=== PATIENT | male | born 1985 | race Caucasian/White ===

== ENCOUNTER 2018-07-12 19:19 | Emergency (ER) | payer SELFPAY ==
--- NOTE | 2018-07-12 20:05 | ED ---
Substance Abuse/Use - HPI Summary HPI Summary: This patient is a 32 year old M brought in by ambulance to [facility] accompanied by Shirley HURD with a chief complaint of heroin overdose since 18:00. [place] who was taking him to be checked into a rehab facility. Patient notes that he relapsed 2 weeks ago and has been taking meth but today was the first time he has done heroin in a long time. registered private duty nurse administered narcan [employer] and note that the patient vomited. The patient rates the pain 0/10 in severity. Symptoms aggravated by recent stress. Patient notes that he was released from correction a few weeks ago and his father recently . Symptoms alleviated by nothing. Patient denies any notable symptoms. Hx bipolar disorder and substance abuse. Patient notes that he is currently on parole. - History Of Current Complaint Chief Complaint: EDOverdose Stated Complaint: OVERDOSE Time Seen by Provider: 07/12/18 19:33 Hx Obtained From: Patient Onset/Duration of Drug/ETOH Abuse: Hours Ingestion History: Type/Name Of Drug - Heroin, Approximate Time Of Ingestion - 18:00 Overdose Characteristics: IV Severity Initially: Moderate Severity Currently: Mild Aggravating Factor(s): Recent Stress - patient notes that he was released from correction a few weeks ago and his father recently Alleviating Factor(s): Medication - narcan Associated Signs And Symptoms: Vomiting - Allergies/Home Medications Home Medications: Home Medications NK [No Home Medications Reported] 07/12/18 [History Confirmed 07/12/18] PMH/Surg Hx/FS Hx/Imm Hx Psychiatric History: Reports: Hx Bipolar Disorder, Hx Substance Abuse Infectious Disease History: No Infectious Disease History: Denies: Traveled Outside the [place] in Last 30 Days - Family History Known Family History: Negative: Diabetes - Social History Occupation: Unemployed Hx Substance Use: Yes Substance Use Type: Reports: Heroin, Other - meth Review of Systems Negative: Fever Negative: Epistaxis Negative: Chest Pain Negative: Cough Positive: Vomiting All Other Systems Reviewed And Are Negative: Yes Physical Exam - Summary Physical Exam Summary: VITAL SIGNS: Reviewed. GENERAL: Patient is a well-developed and nourished MALE who is lying comfortable in the stretcher. Patient is not in any acute respiratory distress. HEAD AND FACE: Minor abrasion over the right face. No ecchymosis, hematomas or skull depressions. No sinus tenderness. EYES: PERRLA, EOMI x 2, No injected conjunctiva, no nystagmus. EARS: Hearing grossly intact. Ear canals and tympanic membranes are within normal limits. MOUTH: Oropharynx within normal limits. NECK: Supple, trachea is midline, no adenopathy, no JVD, no carotid bruit, no c- spine tenderness, neck with full ROM. CHEST: Symmetric, no tenderness at palpation LUNGS: Clear to auscultation bilaterally. No wheezing or crackles. CVS: Regular rate and rhythm, S1 and S2 present, no murmurs or gallops appreciated. ABDOMEN: Soft, non-tender. No signs of distention. No rebound no guarding, and no masses palpated. Bowel sounds are normal. EXTREMITIES: FROM in all major joints, no edema, no cyanosis or clubbing. NEURO: Alert and oriented x 3. No acute neurological deficits. Speech is normal and follows commands. SKIN: Dry and warm. Minor abrasion to right face. Superficial abrasions to right hand. Triage Information Reviewed: Yes Vital Signs On Initial Exam: Initial Vitals Temp Pulse Resp BP Pulse Ox 96.5 F 96 16 112/79 95 07/12/18 19:21 07/12/18 19:21 07/12/18 19:21 07/12/18 19:21 07/12/18 19:21 Vital Signs Reviewed: Yes Diagnostics - Vital Signs Vital Signs Temp Pulse Resp BP Pulse Ox 07/12/18 19:27 96 20 112/79 96 07/12/18 19:26 18 07/12/18 19:21 96.5 F 96 16 112/79 95 - Laboratory Lab Statement: Any lab studies that have been ordered have been reviewed, and results considered in the medical decision making process. Course/Dx - Course Course Of Treatment: This patient is a 32 year old M with hx substance abuse brought in by ambulance to [facility] accompanied by Shirley HURD with a chief complaint of heroin overdose since 18:00. [place] his friend who was taking him to be checked into a rehab facility. Patient notes that he relapsed 2 weeks ago and has been taking meth but today was the first time he has done heroin in a long time. Symptoms alleviated by nothing. Patient denies any notable symptoms. Patient is currently on parole. Patient notes he feels much better. Patient will be discharged into police custody. Patient is agreeable with this plan. - Diagnoses Provider Diagnoses: Heroin overdose, Substance abuse Discharge - Sign-Out/Discharge Documenting (check all that apply): Patient Departure - discharge home - Discharge Plan Condition: Stable Disposition: LAW ENFORCEMENT/COURT Patient Education Materials: Adult Overdose (ED) Additional Instructions: Follow up with primary care physician in 1-2 days. Return to the emergency department with any new or worsening symptoms. - Attestation Statements Document Initiated by Scribe: Yes Documenting Scribe: Ebony Gates Provider For Whom Sunithaibe is Documenting (Include Credential): Ca Patterson MD Scribe Attestation: Ebony Bowling, scribed for Ca Patterson MD on 07/12/18 at 2025. Status of Scribe Document: Ready
[2018-07-12 20:29] VITALS: BP 105/59
== END 2018-07-12 21:13 ==
LOC: ED 19:19
DX: T40.1X1A Poisoning by heroin, accidental (unintentional), initial encounter (principal); F19.10 Other psychoactive substance abuse, uncomplicated; Y92.59 Other trade areas as the place of occurrence of the external cause; R11.10 Vomiting, unspecified
CPT/HCPCS: 99282